=== PATIENT | female | born 1975 | race Caucasian/White ===

== ENCOUNTER 2016-09-01 13:00 | Emergency (ER) | payer MEDICARE ==
[~2016-09-01 13:00] MED LIST: ASTELIN NASAL S30 ML NS; CALCIUM500 MG PO; COLACE-DPS100 MG PO; DETROL LA DPS4 MG PO; EFFEXOR XR37.5 M1 PO; FLONASE 0.05% D16 GM NS; IMITREX DPS50 MG PO; KLONOPIN DPS0.5 MG PO; KLONOPIN DPS1 MG PO; MOTRIN-DPS800 MG PO; PERCOCET 5 DPS1 TAB PO; SUDAFED 24-HOU240 MG PO; THERA1 EACH PO; TOPAMAX DPS25 MG PO; WELLBUTRIN XL300 MG PO; ZOFRAN4 M1 PO
--- NOTE | 2016-09-07 08:44 | ER ---
ADMIT: 09/01/2016 RM/LOC: ER [facility] MR#: [id number] [id number] [facility] [address] [place], [place] [id number] KIMO JONES [address] [place], [place] [id number] Emergency Room Report SEX: F AGE: 41 : 1975 DATE: 09/01/2016 HISTORY OF PRESENT ILLNESS: Kimo is a 41-year-old female, presents to emergency room with left facial and left eye lid droop for about 8 hours. She says she went to work this morning, had a meeting, had a donut and then the changes started to show up. She had some blurred vision, weak, and one of her friends that was walking with her realized that she was slow in her speech and that she had looked little different, looked worse than before. She did not know what that meant, but she does supply information to us that she had some change of medication and increasing the dose, but she cannot remember what medication and she has not taken it yet. REVIEW OF SYSTEMS: Otherwise negative. Dad is accompanying her. PAST MEDICAL HISTORY: Bipolar disorder, polycystic ovarian syndrome, seasonal allergies with migraine. She had had a hysterectomy in the past. MEDICATIONS: See T-sheet for all her medications. ALLERGIES: SHE IS ALLERGIC TO E-MYCIN. SOCIAL HISTORY: She drinks alcohol on rare occasion. She lives by herself at home. She has a little cats. PHYSICAL EXAMINATION: VITAL SIGNS: Blood pressure 136/96, heart rate of 94, respirations 23, temp is 97.2, and O2 sats 96%. She is alert, very pleasant, but seems like she needs to really think the words that she is going to say before she says them. HEENT: Normal inspection. Pharynx is clear. NEUROLOGIC: Oriented x4. Cognition is normal. Speech is slow. Mood and affect are expressive, and she is alert and oriented. Cranial nerves II through XII are tested, and she is normal. Cerebellar also normal. Romberg is normal. NECK: Supple. No carotid bruit. RESPIRATIONS: No distress. CARDIOVASCULAR: Regular in rate and rhythm. ABDOMEN: Nontender, although obese. SKIN: Good color and turgor. EXTREMITIES: Well perfused. Absolutely, no neurological deficit. DIAGNOSTIC DATA: I did some labs, which we found that the white count is 13.6 with no other negative ulceration in the labs. Chemistry; potassium 3.5, BUN ADMIT: 09/01/2016 RM/LOC: ER [facility] MR#: [id number] [facility] [address] [place] [id number] KIMO JONES [address] [facility] [address] [place] [address] Emergency Room Report SEX: F AGE: 41 : 1975 is 4, glucose 146, TSH is 0.779. Her UA shows glucose 70. test is negative. Her CT of the head read by Dr. Lopez was totally negative. I contacted Dr. Siva Alvarez with her findings. CLINICAL IMPRESSION: 1. Weakness. 2. Migraine headache. We will go ahead and treat her. She says she is getting at the brink of getting a full-blown headache. We will go ahead and give her Imitrex 6 mg subcu and some Zofran and sent her home. Follow up with Dr. Siva Alvarez, who is on-call for the weekend. Hydration. SHANNAN Escobar / Curt Hawley MD / patrickl JOB #: [id number] CC: Curt Hawley MD, Attending Physician Siva Alvarez MD, Family Physician
== END 2016-09-01 16:45 | disposition home or self-care (01) ==
LOC: ER 13:00
DX: G43.909 Migraine, unspecified, not intractable, without status migrainosus (principal); R53.1 Weakness; E86.0 Dehydration; F31.9 Bipolar disorder, unspecified; E28.2 Polycystic ovarian syndrome; J30.2 Other seasonal allergic rhinitis; Z90.710 Acquired absence of both cervix and uterus; Z88.1 Allergy status to other antibiotic agents; Z79.899 Other long term (current) drug therapy

== ENCOUNTER → 2016-09-20 | Outpatient (CLI) | payer MEDICARE | END | disposition home or self-care (01) | LOC: RAD.S 09:30 | DX: Z12.31 Encounter for screening mammogram for malignant neoplasm of breast (principal) ==